=== PATIENT | male | born 1995 | race African-American/Black ===

== ENCOUNTER 2018-07-23 14:00 | Emergency (ER) | payer BC, OTHER ==
[~2018-07-23] VITALS: Ht 182.9 cm; Wt 104.7 kg
[2018-07-23 14:07] VITALS: TEMP 37.4; Ht 182.9 cm; Wt 104.7 kg
[2018-07-23 15:27] LABS: BASO % 0.1 %; BASO ABS # 0.01 K/uL (0-0.2); EOS % 0.1 %; EOS ABS # 0.01 K/uL (0-0.5); HEMATOCRIT 42.2 % (42-52); HEMOGLOBIN 14.6 g/dL (14.0-18.0); IG# 0.01 K/uL (0.00-0.02); LYMPH % 13.6 %; LYMPH ABS # 1.34 K/uL (1.2-3.4); MEAN CELL VOLUME 81.9 fL (80-100); MEAN CORPUSCULAR HEMOGLOBIN 28.3 pg (25-34); MEAN CORPUSCULAR HGB CONC 34.6 g/dl (32-36); MEAN PLATELET VOLUME 9.9 fL (7.4-10.4); MONO % 6.9 %; MONO ABS # 0.68 K/uL (0.11-0.59); NEUT % 79.2 %; NEUT ABS # 7.77 K/uL (1.4-6.5); PLATELET COUNT 209 K/uL (130-400); RED CELL DISTRIBUTION WIDTH CV 13.1 % (11.5-14.5); RED CELL DISTRIBUTION WIDTH SD 39.7 fL (36.4-46.3); WHITE BLOOD COUNT 9.82 K/uL (4.8-10.8)
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
[2018-07-23 15:57] LABS: ALBUMIN 4.1 gm/dl (3.4-5.0); CALCIUM 9.4 mg/dl (8.5-10.1); CREATININE 1.14 mg/dl (0.60-1.40); POTASSIUM 3.7 mmol/L (3.5-5.1); TOTAL PROTEIN 8.1 gm/dl (6.4-8.2)
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
--- NOTE | 2018-07-24 04:19 | EMERGENCY ROOM VISIT NOTE ---
ED Visit Note First contact with patient: 02:58 This case was signed out to me at change of shift awaiting bed placement. The bed search is currently suspended as no beds are available. The patient is resting comfortably at this time. 0418: The patient is resting comfortably at this time. The case will be signed out to Dr. Mike change of shift. The bed search will resume in the morning.
[2018-07-24 14:40] VITALS: BP 126/63; PULSE 65; O2SAT 99
--- NOTE | 2018-07-25 13:44 | EMERGENCY ROOM VISIT NOTE ---
ED Visit Note First contact with patient: 14:26 I received this patient in signout at the change of shift, awaiting mental health evaluation. After evaluation by the psychiatric nurse liaison, Lisbeth and review with Dr. Segura, patient was felt to be much clearer and able to make sense of the situation last evening. He does believe it was substance-induced although he has had some issues with anxiety and depression particularly over the last year. His mother runs a partial hospitalization program in the [facility] and is able to help coordinate mental health treatment for him as an outpatient. He denies any suicidal or homicidal thoughts, he has ceased hyper buddhist and grandiose statements. He will return to the ED for worsening of symptoms or any medical concerns.
== END 2018-07-24 14:40 | disposition home or self-care (01) ==
LOC: C.EDB 14:02 → C.EDA 07-24 14:40
DX: F39 Unspecified mood [affective] disorder (principal); F29 Unspecified psychosis not due to a substance or known physiological condition; F12.20 Cannabis dependence, uncomplicated; F17.200 Nicotine dependence, unspecified, uncomplicated